=== PATIENT | female | born 1990 | race African-American/Black ===

== ENCOUNTER 2019-11-24 11:53 | Emergency (ER) | payer MEDICAID, OTHER ==
[~2019-11-24] VITALS: Ht 160 cm; Wt 109.0 kg
[2019-11-24] MEDS ORDERED: KETOROLAC 30MG/ML VIAL IM ONE (13:15)
[2019-11-24 16:12] VITALS: BP 159/84
== END 2019-11-24 16:14 | disposition home or self-care (01) ==
LOC: ER 11:53
DX: R51 Headache (principal); M25.562 Pain in left knee; M25.561 Pain in right knee; M25.521 Pain in right elbow; V49.9XXA Car occupant (driver) (passenger) injured in unspecified traffic accident, initial encounter; Y93.89 Activity, other specified; Y92.89 Other specified places as the place of occurrence of the external cause; Y99.8 Other external cause status
CPT/HCPCS: 70450; 70486; 73080; 73562; 81025; 96372; 99285; J1885